=== PATIENT | female | born 1970 | race Hispanic/Latino ===

== ENCOUNTER → 2017-09-07 | Outpatient (CLI) | payer MEDICARE ==
[~2017-09-07] MED LIST: ALBUMIN (HUMAN) 25% 200 ML IV SCH
[2017-09-07 13:08] LABS: APPEARANCE BODY FLUID CLEAR (CLEAR); SPECIMENTYPE,BODY FLUID ASCITES
[2017-09-07 13:09] LABS: BODY FLUID RBC 302 /cu. mm.; BODY FLUID WBC 174 /cu. mm.; COLOR,BODY FLUID DARK YELLOW (LT YELLOW); TOTAL VOLUME,BODY FLUID 100 mL
[2017-09-07 13:45] LABS: BF LYMPHOCYTE 55 %; BF MESOTHELIAL 33 %; BF MONOCYTE 9 %
== END | disposition home or self-care (01) ==
LOC: RAH 08:38
PROVIDERS: ATTEND Internal Medicine Hematology & Oncology
DX: R18.8 Other ascites (principal)
CPT/HCPCS: 49083; 87071; 87205; 89051; P9046